=== PATIENT | male | born 1995 | race African-American/Black ===

== ENCOUNTER 2023-11-05 20:56 | Emergency (ER) | payer OTHER ==
[2023-11-05 21:10] VITALS: BMI 26.6
[2023-11-05] MEDS ORDERED: ONDANSETRON 4 MG/2 ML VIAL IVPUSH ONE (23:03)
[2023-11-05] MEDS ORDERED: ACETAMINOPHEN 1000 MG/100 ML BAG IVPB ONE (23:03)
[2023-11-05] MEDS ORDERED: FAMOTIDINE 20 MG/50 ML IVPB 20 MG/50 ML MG IVPB ONE (23:03)
[2023-11-05] MEDS ORDERED: SODIUM CHLORIDE 1,000 ML IV STA (23:03)
[2023-11-06] MEDS ORDERED: ONDANSETRON 4 MG/2 ML VIAL ONE (00:07)
[2023-11-06] MEDS ORDERED: ACETAMINOPHEN INJECTION 100 ML IVPB ONE (00:07)
[2023-11-06] MEDS ORDERED: FAMOTIDINE 20 MG/50 ML IVPB 20 MG/50 ML MG IVPB ONE (00:07)
[2023-11-06 00:14] LABS: HEMATOCRIT 47.4 % (35.4-49); MCH 31.4 pg (25.7-33.7); MCHC 33.7 g/dl (32.0-35.9); MEAN CELL VOLUME 93.2 fl (80-96); MEAN PLT VOLUME 8.8 fl (7.5-11.1); PLATELET COUNT 271 10^3/uL (134-434); RBC 5.08 M/mm3 (4.00-5.60); RDW 12.8 % (11.9-15.9); WHITE BLOOD COUNT 9.2 K/mm3 (4.0-10.0)
[2023-11-06 00:31] LABS: CHLORIDE 102 mmol/L (98-107); SODIUM 134 mmol/L (136-145)
[2023-11-06 00:33] LABS: CALCIUM 9.5 mg/dL (8.5-10.1)
[2023-11-06 00:34] LABS: ALBUMIN 4.2 g/dl (3.4-5.0); BLOOD UREA NITROGEN 14.9 mg/dL (7-18); CO2 29 mmol/L (21-32); GLUCOSE,RANDOM 117 mg/dL (74-106)
[2023-11-06 00:37] LABS: CREATININE 1.3 mg/dL (0.55-1.3); SGOT/AST 66 U/L (15-37)
[2023-11-06 00:38] LABS: TOT PROT 8.5 g/dl (6.4-8.2)
[2023-11-06 00:39] LABS: BILIRUBIN,TOTAL 0.9 mg/dL (0.2-1)
[2023-11-06 00:40] LABS: ALK PHOS 69 U/L (45-117)
[2023-11-06 00:48] LABS: ANION GAP 3 mmol/L (4-13); POTASSIUM 8.7 mmol/L (3.5-5.1); SGPT/ALT 46 U/L (13-61)
[2023-11-06 01:35] LABS: ANISOCYTOSIS 1+; MACROCYTOSIS 0; TEAR DROP CELLS 2+; TOXIC GRANULATION 2+
[2023-11-06 01:48] LABS: POTASSIUM 3.7 mmol/L (3.5-5.1)
[2023-11-06 01:49] LABS: CALCIUM 8.4 mg/dL (8.5-10.1)
[2023-11-06 01:50] LABS: BLOOD UREA NITROGEN 13.8 mg/dL (7-18)
[2023-11-06 01:53] LABS: CREATININE 1.1 mg/dL (0.55-1.3)
[2023-11-06 02:04] VITALS: BP 121/72; PULSE 85; RESP 16; TEMP 98.3
== END 2023-11-06 03:19 | disposition home or self-care (01) ==
LOC: JER 20:56
PROC: 3E033GC Introduction of Other Therapeutic Substance into Peripheral Vein, Percutaneous Approach (ICD-10-PCS; principal; 2023-11-05)
PROC: 3E033NZ Introduction of Analgesics, Hypnotics, Sedatives into Peripheral Vein, Percutaneous Approach (ICD-10-PCS; 2023-11-05)
PROC: 3E033GC Introduction of Other Therapeutic Substance into Peripheral Vein, Percutaneous Approach (ICD-10-PCS; 2023-11-05)
PROC: 3E0337Z Introduction of Electrolytic and Water Balance Substance into Peripheral Vein, Percutaneous Approach (ICD-10-PCS; 2023-11-05)
DX: R11.2 Nausea with vomiting, unspecified (principal); R10.84 Generalized abdominal pain; R19.7 Diarrhea, unspecified; K52.9 Noninfective gastroenteritis and colitis, unspecified; Z20.822 Contact with and (suspected) exposure to COVID-19
CPT/HCPCS: 0241U-QW; 36415; 80048; 80053; 85025; 99284-25

== ENCOUNTER 2024-07-12 15:46 | Emergency (ER) | payer OTHER ==
[2024-07-12 15:59] VITALS: BP 142/88; PULSE 87; RESP 17; TEMP 98.5; BMI 28.7
== END 2024-07-12 18:13 | disposition home or self-care (01) ==
LOC: JERFT 15:46
DX: S93.401A Sprain of unspecified ligament of right ankle, initial encounter (principal); X50.1XXA Overexertion from prolonged static or awkward postures, initial encounter; Y93.67 Activity, basketball
CPT/HCPCS: 73610-TC-RT-FY; 99283-25